=== PATIENT | male | born 1940 | race Caucasian/White ===

== ENCOUNTER → 2020-08-08 | Outpatient (CLI) | payer OTHER | END | disposition home or self-care (01) | LOC: RAH 09:47 | PROVIDERS: ATTEND Internal Medicine | DX: M17.12 Unilateral primary osteoarthritis, left knee (principal); M16.12 Unilateral primary osteoarthritis, left hip; I70.202 Unspecified atherosclerosis of native arteries of extremities, left leg | CPT/HCPCS: 73502; 73562 ==

== ENCOUNTER → 2020-08-26 | Outpatient (CLI) | payer OTHER | END | disposition home or self-care (01) | LOC: RAH 11:24 | PROVIDERS: ATTEND Internal Medicine | DX: M51.17 Intervertebral disc disorders with radiculopathy, lumbosacral region (principal); M48.061 Spinal stenosis, lumbar region without neurogenic claudication | CPT/HCPCS: 72148 ==

== ENCOUNTER 2022-03-23 09:00 | Observation (INO) | payer MEDICARE ==
[~2022-03-23] VITALS: Ht 185.4 cm; Wt 98.1 kg
[2022-03-24 10:24] LABS: BASOPHILS % (AUTO) 0.7 % (0.0-5.0); EOSINOPHILS % (AUTO) 5.1 % (0.0-8.0); MEAN CORPUSCULAR HEMOGLOBIN 31.2 pg (27.0-33.0); MEAN CORPUSCULAR HGB CONC 31.8 g/dL (32.0-36.0); MEAN CORPUSCULAR VOLUME 98.3 fL (79-99); MONOCYTES % (AUTO) 9.5 % (3.0-13.0); NEUTROPHILS % (AUTO) 65.3 % (40.0-77.0); PLATELET COUNT (AUTO) 152 K/uL (130-400); RED BLOOD CELL COUNT(AUTO) 4.58 MIL/uL (4.50-6.20); RED CELL DISTRIBUTION WIDTH 12.8 % (11.0-15.5); WHITE BLOOD COUNT (AUTO) 5.5 K/uL (4.8-10.8)
[2022-03-24 10:41] LABS: CREATININE 0.9 mg/dL (0.5-1.5); POTASSIUM 4.3 mmol/L (3.5-5.1)
[2022-03-25 08:52] VITALS: BP 131/68
[2022-03-25] MEDS ORDERED: ASCO500C18 PO (09:34)
[2022-03-25] MEDS ORDERED: EZET10TA48 PO (09:34)
[2022-03-25] MEDS ORDERED: VITA1CAP85 PO (09:34)
[2022-03-25] MEDS ORDERED: CALCIUM PO (09:34)
[2022-03-25] MEDS ORDERED: METO25TA6 PO (09:34)
[2022-03-25] MEDS ORDERED: BETA1TAB18 PO (09:34)
[2022-03-25] MEDS ORDERED: DUTA1CPM4 PO (09:34)
[2022-03-25] MEDS ORDERED: GLUC-172 PO (09:34)
[2022-03-25] MEDS ORDERED: VITAMIN D PO (09:45)
[2022-03-26] VITALS (25 sets, daily range): BP systolic 109–166; BP diastolic 50–99
[2022-03-26] MEDS ORDERED: LACTATED RINGERS 1000ML 1,000 ML IV ONE (06:44)
[2022-03-26] MEDS ORDERED: DEXAMETHASONE SOD PHOSPHATE 10MG/ML 1ML VIAL ONE ×2 (06:53→06:58)
[2022-03-26] MEDS ORDERED: SUCCINYLCHOLINE CHLORIDE 20 MG/ML 10 ML VIAL ONE (06:53)
[2022-03-26] MEDS ORDERED: LIDOCAINE PF 100MG/5ML (2%) SYRINGE 5ML ONE (06:53)
[2022-03-26] MEDS ORDERED: ONDANSETRON 4MG INJ ONE ×2 (06:54→08:57)
[2022-03-26] MEDS ORDERED: MIDAZOLAM HCL 1 MG/ML 2ML VIAL ONE (06:54)
[2022-03-26] MEDS ORDERED: PROPOFOL 10 MG/ML 20ML VIAL IV ONE (06:54)
[2022-03-26] MEDS ORDERED: NEOSTIGMINE 5MG/5ML SYR IV ONE (06:54)
[2022-03-26] MEDS ORDERED: ROCURONIUM 10MG/1ML SYR 10 MG/ML ML ONE (06:55)
[2022-03-26] MEDS ORDERED: FENTANYL CITRATE PF 50 MCG/1 ML 2ML VIAL ONE ×2 (06:55→09:59)
[2022-03-26] MEDS ORDERED: GLYCOPYRROLATE 1 MG/5 ML SYRINGE ONE (06:57)
[2022-03-26] MEDS ORDERED: CEFAZOLIN SODIUM 1 GM VIAL ONE (07:00)
[2022-03-26] MEDS ORDERED: BUPIVACAINE/EPI/PF 0.25% 30ML VIAL IJ ONE (07:00)
[2022-03-26] MEDS ORDERED: MORPHINE PF 100MG/10ML AMP IV ONE (07:01)
[2022-03-26] MEDS ORDERED: THROMBIN-JMI 20000 UNIT KIT TP ONE (07:01)
[2022-03-26] MEDS ORDERED: PHENYLEPHRINE HCL 10 MG/ML 1ML VIAL IV ONE ×2 (07:04→08:57)
[2022-03-26] MEDS: CEFAZOLIN SODIUM 1 GM VIAL ONE ×2 (07:05→08:00)
[2022-03-26] MEDS ORDERED: ARTIFICIAL TEARS 3.5 GM OINTMENT ONE (07:42)
[2022-03-26] MEDS ORDERED: 0.9%NACL 10ML VIAL IVP PRN (11:00)
[2022-03-26] MEDS ORDERED: PROMETHAZINE HCL 25 MG/ML 1ML AMPULE IM PRN (11:00)
[2022-03-26] MEDS: CEFAZOLIN SODIUM 1 GM VIAL IVP SCH ×2 (11:00→18:50)
[2022-03-26] MEDS ORDERED: HYDROCODONE/ACETAMINOPHEN 5/325 MG TAB PO PRN (11:00)
[2022-03-26] MEDS ORDERED: MORPHINE 2 MG SYG IVP PRN (11:00)
[2022-03-26] MEDS: DEXAMETHASONE SOD PHOSPHATE 4 MG/ML 1ML VIAL IVP SCH ×3 (11:00→22:17)
[2022-03-26] MEDS ORDERED: LACTATED RINGERS 1000ML 1,000 ML IV SCH (11:00)
[2022-03-26] MEDS ORDERED: GLYCOPYRROLATE 0.2 MG/ML 5 ML VIAL ONE (11:04)
[2022-03-26] MEDS: ASCORBIC ACID 500 MG TAB PO SCH (11:23)
[2022-03-26] MEDS ORDERED: GLUCOSAMINE-CHONDROITIN PO SCH (11:27)
[2022-03-26] MEDS: MULTIVITAMIN WITH MINERALS TABLET PO SCH (11:28)
[2022-03-26] MEDS ORDERED: FINASTERIDE 5 MG TABLET PO SCH (21:00)
[2022-03-26] MEDS: METOPROLOL TARTRATE 25 MG TAB PO SCH (22:17)
[2022-03-27 00:22] VITALS: BP 116/61
[2022-03-27 04:25] VITALS: BP 120/67
[2022-03-27] MEDS: DEXAMETHASONE SOD PHOSPHATE 4 MG/ML 1ML VIAL IVP SCH ×2 (05:57→11:28)
[2022-03-27 08:00] VITALS: BP 107/65
[2022-03-27] MEDS ORDERED: TAMSULOSIN HCL PO SCH (09:00)
[2022-03-27] MEDS ORDERED: DUTASTERIDE PO SCH (09:00)
[2022-03-27] MEDS ORDERED: EZETIMIBE 10 MG TAB PO SCH (09:00)
[2022-03-27] MEDS ORDERED: [UNRECOGNIZED DRUG - OTHER] PO SCH (09:00)
[2022-03-27] MEDS ORDERED: CALCIUM CARB 500MG PO SCH (09:00)
[2022-03-27] MEDS ORDERED: TAMSULOSIN HCL 0.4 MG CAP.ER.24H PO SCH (09:00)
[2022-03-27] MEDS ORDERED: FINASTERIDE 5 MG TABLET PO SCH (09:00)
[2022-03-27] MEDS ORDERED: VITAMIN B COMPLEX 1 CAPSULE PO SCH (09:00)
[2022-03-27] MEDS: ASCORBIC ACID 500 MG TAB PO SCH (09:39)
[2022-03-27] MEDS: MULTIVITAMIN WITH MINERALS TABLET PO SCH (09:40)
[2022-03-27] MEDS: METOPROLOL TARTRATE 25 MG TAB PO SCH (09:42)
[2022-03-27 11:55] VITALS: BP 134/73
[2022-03-28] MEDS ORDERED: PHEN-847 PO (01:07)
== END 2022-03-27 12:15 | disposition home or self-care (01) ==
LOC: EDSTATUS 09:00 → DAHIP 03-26 05:58 → 4AH 03-26 12:52
PROVIDERS: ADMIT Neurological Surgery; ATTEND Neurological Surgery
DX: M48.061 Spinal stenosis, lumbar region without neurogenic claudication (principal); Z20.822 Contact with and (suspected) exposure to COVID-19; M47.819 Spondylosis without myelopathy or radiculopathy, site unspecified; N40.0 Benign prostatic hyperplasia without lower urinary tract symptoms; I10 Essential (primary) hypertension; Z79.899 Other long term (current) drug therapy
CPT/HCPCS: 36415; 63047; 63048 ×3; 71045; 72020; 80048; 85025; 87635; 96374; 96375; 96376 ×2; A4215; A4221; A4222; A4223; A4663; A6260; G0378 ×24; G0379; J0330; J0690 ×3; J1100 ×6; J2001; J2250; J2274; J2370 ×2; J2405 ×2; J2704; J2710; J3010 ×2; J3490 ×3; J7120

== ENCOUNTER 2022-03-27 17:25 | Emergency (ER) | payer MEDICARE ==
[~2022-03-27] VITALS: Ht 185.4 cm; Wt 97.1 kg
[~2022-03-27 17:25] MED LIST: ASCO500C18 PO; BETA1TAB18 PO; CALCIUM PO; DUTA1CPM4 PO; EZET10TA48 PO; GLUC-172 PO; METO25TA6 PO; VITA1CAP85 PO; VITAMIN D PO
[2022-03-27] MEDS ORDERED: LIDOCAINE HCL 2% VISCOUS 15 ML UDCUP PO ONE (18:00)
[2022-03-27 18:15] LABS: APPEARANCE,URINE Clear (CLEAR); BILIRUBIN,URINE Negative (NEGATIVE); COLOR,URINE Yellow (YELLOW); GLUCOSE, URINE (UA) Negative (NEGATIVE); KETONES,URINE Negative (NEGATIVE); LEUKOCYTE ESTERASE ,URINE Negative (NEGATIVE); NITRATE,URINE Negative (NEGATIVE); OCCULT BLOOD,URINE Negative (NEGATIVE); PROTEIN,URINE Negative (NEGATIVE); UROBILINOGEN,URINE 0.2 mg/dL (0.2-1.0)
[2022-03-27 19:17] VITALS: BP 151/70
[2022-03-28] MEDS ORDERED: PHEN-847 PO (01:07)
== END 2022-03-27 20:07 | disposition home or self-care (01) ==
LOC: EDH 17:25
DX: R33.9 Retention of urine, unspecified (principal); R10.30 Lower abdominal pain, unspecified; I10 Essential (primary) hypertension; Z98.890 Other specified postprocedural states; Z91.041 Radiographic dye allergy status; Z79.899 Other long term (current) drug therapy
CPT/HCPCS: 51702; 81003

== ENCOUNTER 2022-03-27 23:58 | Emergency (ER) | payer MEDICARE ==
[~2022-03-27] VITALS: Ht 185.4 cm; Wt 97.1 kg
[2022-03-27 23:59] VITALS: BP 159/71
[2022-03-28] MEDS ORDERED: PHENAZOPYRIDINE HCL 200 MG TABLET ONE (00:37)
[2022-03-28] MEDS ORDERED: PHENAZOPYRIDINE HCL 200 MG TABLET PO ONE (01:00)
[2022-03-28] MEDS ORDERED: PHEN-847 PO (01:07)
== END 2022-03-28 01:16 | disposition home or self-care (01) ==
LOC: EDH 23:58
DX: T83.091A Other mechanical complication of indwelling urethral catheter, initial encounter (principal); I10 Essential (primary) hypertension; Z88.8 Allergy status to other drugs, medicaments and biological substances; Z79.899 Other long term (current) drug therapy; Z98.890 Other specified postprocedural states
CPT/HCPCS: 51702; 81003

== ENCOUNTER 2022-03-29 17:34 | Emergency (ER) | payer MEDICARE ==
[~2022-03-29] VITALS: Ht 185.4 cm; Wt 97.1 kg
[~2022-03-29 17:34] MED LIST changes: +PHEN-847 PO
[2022-03-29 17:36] VITALS: BP 140/94
== END 2022-03-29 21:05 | disposition home or self-care (01) ==
LOC: EDH 17:34
DX: Z48.01 Encounter for change or removal of surgical wound dressing (principal); I10 Essential (primary) hypertension; Z88.8 Allergy status to other drugs, medicaments and biological substances; Z79.899 Other long term (current) drug therapy; Z98.890 Other specified postprocedural states

== ENCOUNTER 2023-01-06 10:00 | Emergency (ER) | payer MEDICARE ==
[~2023-01-06] VITALS: Ht 185.4 cm; Wt 95.7 kg
[~2023-01-06 10:00] MED LIST changes: +ACET-2079 PO; +IBUP-2070 PO
[2023-01-06 12:43] VITALS: BP 131/74
== END 2023-01-06 12:44 | disposition home or self-care (01) ==
LOC: EDH 10:00
DX: M54.50 Low back pain, unspecified (principal); E78.00 Pure hypercholesterolemia, unspecified; I10 Essential (primary) hypertension; Z79.1 Long term (current) use of non-steroidal anti-inflammatories (NSAID); Z88.8 Allergy status to other drugs, medicaments and biological substances
CPT/HCPCS: 74176

== ENCOUNTER → 2023-02-16 | Outpatient (CLI) | payer MEDICARE | END | disposition home or self-care (01) | LOC: RAH 16:39 | PROVIDERS: ATTEND Internal Medicine | DX: M51.36 Other intervertebral disc degeneration, lumbar region (principal); M48.07 Spinal stenosis, lumbosacral region; M47.816 Spondylosis without myelopathy or radiculopathy, lumbar region; M54.50 Low back pain, unspecified | CPT/HCPCS: 72100 ==

== ENCOUNTER → 2023-02-24 | Outpatient (CLI) | payer MEDICARE | END | disposition home or self-care (01) | LOC: RAH 14:02 | PROVIDERS: ATTEND Family Medicine | DX: S91.105A Unspecified open wound of left lesser toe(s) without damage to nail, initial encounter (principal); R60.0 Localized edema; M19.072 Primary osteoarthritis, left ankle and foot; M77.32 Calcaneal spur, left foot; X58.XXXA Exposure to other specified factors, initial encounter; Y93.89 Activity, other specified; Y92.89 Other specified places as the place of occurrence of the external cause; Y99.8 Other external cause status | CPT/HCPCS: 73630 ==

== ENCOUNTER → 2023-03-15 | Outpatient (CLI) | payer MEDICARE | END | disposition home or self-care (01) | LOC: RAH 14:56 | PROVIDERS: ATTEND Internal Medicine | DX: S32.000A Wedge compression fracture of unspecified lumbar vertebra, initial encounter for closed fracture (principal); M43.16 Spondylolisthesis, lumbar region; M48.07 Spinal stenosis, lumbosacral region; X58.XXXA Exposure to other specified factors, initial encounter; Y93.89 Activity, other specified; Y92.89 Other specified places as the place of occurrence of the external cause; Y99.8 Other external cause status | CPT/HCPCS: 72114 ==

== ENCOUNTER → 2023-03-26 | Outpatient (CLI) | payer MEDICARE | END | disposition home or self-care (01) | LOC: RAH 13:14 | PROVIDERS: ATTEND Family Medicine | DX: S91.105D Unspecified open wound of left lesser toe(s) without damage to nail, subsequent encounter (principal); M19.072 Primary osteoarthritis, left ankle and foot; R60.0 Localized edema; X58.XXXD Exposure to other specified factors, subsequent encounter | CPT/HCPCS: 73718 ==

== ENCOUNTER → 2023-04-27 | Outpatient (CLI) | payer MEDICARE | END | disposition home or self-care (01) | LOC: RAH 11:32 | PROVIDERS: ATTEND Podiatrist | DX: M86.172 Other acute osteomyelitis, left ankle and foot (principal) | CPT/HCPCS: 73630 ==

== ENCOUNTER → 2023-11-10 | Outpatient (CLI) | payer MEDICARE | END | disposition home or self-care (01) | LOC: RAH 08:42 | PROVIDERS: ATTEND Internal Medicine | DX: K80.20 Calculus of gallbladder without cholecystitis without obstruction (principal) | CPT/HCPCS: 76700; 93975 ==

== ENCOUNTER → 2023-11-26 | Outpatient (CLI) | payer MEDICARE | END | disposition home or self-care (01) | LOC: RAH 13:38 | PROVIDERS: ATTEND Internal Medicine | DX: I35.1 Nonrheumatic aortic (valve) insufficiency (principal); R55 Syncope and collapse | CPT/HCPCS: 93306 ==

== ENCOUNTER → 2023-12-06 | Outpatient (CLI) | payer MEDICARE, OTHER | END | disposition home or self-care (01) | LOC: RAH 13:13 | PROVIDERS: ATTEND Internal Medicine | DX: I65.23 Occlusion and stenosis of bilateral carotid arteries (principal); R55 Syncope and collapse; R42 Dizziness and giddiness | CPT/HCPCS: 93880 ==

== ENCOUNTER → 2023-12-24 | Outpatient (CLI) | payer MEDICARE | END | disposition home or self-care (01) | LOC: RAH 14:05 | PROVIDERS: ATTEND Internal Medicine | DX: M19.021 Primary osteoarthritis, right elbow (principal); M25.521 Pain in right elbow | CPT/HCPCS: 73080 ==

== ENCOUNTER → 2024-09-15 | Outpatient (CLI) | payer MEDICARE | END | disposition home or self-care (01) | LOC: RAH 13:17 | PROVIDERS: ATTEND Internal Medicine | DX: G31.9 Degenerative disease of nervous system, unspecified (principal); R41.3 Other amnesia; G93.89 Other specified disorders of brain | CPT/HCPCS: 70450 ==

== ENCOUNTER 2024-10-08 15:29 | Emergency (ER) | payer MEDICARE ==
[~2024-10-08] VITALS: Ht 185.4 cm; Wt 85.3 kg
--- NOTE | 2024-10-08 15:48 | ERN ---
ED Note History of Present Illness Stated Complaint: BACK PAIN Chief Complaint: Back Pain-No Injury Time Seen by MD: 15:41 Dictation: PATIENT IS AN 84-YEAR-OLD MALE COMING IN WITH A CD FROM AN MRI AND REPORT SHOW HE HAS GOT SEVERE DEGENERATIVE CHANGES TO HIS LUMBOSACRAL BACK WITH CANAL STENOSIS AT L5-S1 S2. NO CHANGE IN BOWEL OR BLADDER FUNCTION, NO FEVER NO CHILLS NO NAUSEA VOMITING. HE STATES HE IS SEEING DR. ALMONTE AT [facility] WHO TOLD HIM THAT HE WAS PROBABLY INOPERABLE AT THIS TIME DUE TO PRIOR SURGERY TO HIS LUMBOSACRAL BACK, ALSO HIS AGE. HE IS SEEING DR. CARTER WHO WAS NOT PRESCRIBED ANYTHING FOR PAIN. HE HAS BEEN REFERRED IN THE NEAR FUTURE TO A TEACHER TUTOR FOR CHRONIC LOW BACK PAIN. HE IS HERE TODAY FOR RELIEF. Allergies: Coded Allergies: Iodinated Contrast Media (Verified Allergy, Unknown, 03/26/22) Uncoded Allergies: IV IODINE (Allergy, Unknown, 03/25/22) Home Meds Active Scripts Methylprednisolone (Medrol) 4 Mg Tab.ds.pk, 1 TAB PO AD for 6 Days, #21 TAB 0 Refills 6 on day 1 then reduce by one tablet daily until gone Prov:ADDIE LEBRON NP 10/08/24 Cyclobenzaprine HCl (Cyclobenzaprine HCl) 10 Mg Tablet, 1 TAB PO HS for muscle spasms for 30 Days, #30 TAB 0 Refills Prov:ADDIE LEBRON NP 10/08/24 Acetaminophen with Codeine (Acetaminophen-Cod #3 Tablet) 300 Mg-30 Mg Tablet, 1 TAB PO Q6H PRN for MODERATE TO SEVERE, #15 TAB 0 Refills Prov:ADDIE LEBRON NP 10/08/24 Acetaminophen with Codeine (Acetaminophen-Cod #3 Tablet) 1 Each Tablet, 1 TAB PO Q6H PRN for PAIN LEVEL 7 TO 10, #15 TAB Prov:WEST RIBERA MD 05/28/22 Ibuprofen (Ibuprofen) 600 Mg Tablet, 600 MG PO Q6H PRN for PAIN, #30 TAB Prov:WEST RIBERA MD 05/28/22 Phenazopyridine HCl (Pyridium) 200 Mg Tab, 200 MG PO TIDPC PRN for bladder pain, #10 TAB 0 Refills TAKE WITH FOOD TO PREVENT STOMACH UPSET. Prov:PATRICIA RIBERA MD 03/28/22 Reported Medications [Vitamin D] No Conflict Check, 1 TAB PO DAILY 03/25/22 Glucosamine/D3/Boswellia Beena (Osteo Bi-Flex Caplet) 1 Each Tablet, 1 EACH PO DAILY, TAB 03/25/22 [Calcium] No Conflict Check, 1 TAB PO DAILY 03/25/22 Ascorbic Acid (Vitamin C) 500 Mg Capsule, 500 MG PO DAILY, CAP 03/25/22 Vitamin B Complex (Vitamin B Complex) 1 Each Capsule, 1 EACH PO DAILY, CAP 03/25/22 Vit A,C & E/Lutein/Minerals (Ocuvite Tablet) 1 Each Tablet, 1 EACH PO DAILY, TAB 03/25/22 Ezetimibe (Ezetimibe) 10 Mg Tablet, 10 MG PO DAILY, TAB 03/25/22 Metoprolol Tartrate (Metoprolol Tartrate) 25 Mg Tablet, 25 MG PO BID, TAB 03/25/22 Dutasteride/Tamsulosin HCl (Dutasteride-Tamsulosin 0.5-0.4) 1 Each Cpmp.24hr, 1 EACH PO DAILY 03/25/22 Past Medical History Past Medical History: High Cholesterol, Hypertension, Prostatitis, Other (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) Additional Past Medical Hx: BPH Surgical History: Other Surgical History Other: LUMBAR SURGERY Social History: Negative, Lives with family, Other RN Note Reviewed/Agreed w/PFSH: Yes Review of System Dictation CONSTITUTIONAL: NEGATIVE EXCEPT FOR HPI HEAD/FACE: NEGATIVE EXCEPT FOR HPI EENT: NEGATIVE EXCEPT FOR HPI RESPIRATORY: NEGATIVE EXCEPT FOR HPI GASTROINTESTINAL/ABDOMINAL: NEGATIVE EXCEPT FOR HPI GENITOURINARY: NEGATIVE EXCEPT FOR HPI MUSCULOSKELETAL: NEGATIVE EXCEPT FOR HPI SEVERE LOW BACK PAIN WORSE WHEN HE STANDS UP INTEGUMENTARY: NEGATIVE EXCEPT FOR HPI NEUROLOGICAL/PSYCH: NEGATIVE EXCEPT FOR HPI HEMATOLOGIC/LYMPHATIC: NEGATIVE EXCEPT FOR HPI ALL SYSTEMS NEGATIVE, EXCEPT NOTED ABOVE. 13 POINT REVIEW OF SYSTEMS ASSESSED AND ALL NEGATIVE EXCEPT FOR ABOVE. Initial Vital Sign VS Vital Signs Date Time Temp Pulse Resp B/P (MAP) Pulse Ox O2 Delivery O2 Flow Rate FiO2 10/08/24 15:33 98.6 90 18 115/86 97 10/08/24 16:26 Room Air* 0 21 Physical Exam Dictation VITAL SIGNS REVIEWED GENERAL APPEARANCE: ALERT, ORIENTED X 3, N MODERATE ACUTE DISTRESS, WELL DEVELOPED, NOURISHED. PATIENT STATES PAIN GOES FROM A SEVEN TO A 10 OVER A 10 WHEN HE STANDS UP HEAD AND FACE: NON-TRAUMATIC. EYES: PERRL, PINK CONJUNCTIVAS, EYELID NO TRAUMA, ANTERIOR CHAMBER WITH ARCUS SENILIS. EARS: PINNAS INTACT AND NO SIGNS OF TRAUMA OR ERYTHEMA EAR CANALS CLEAR AND NO DISCHARGE TM NO ERYTHEMA NOSE: NO DISCHARGE, NO BLEEDING. OROPHARYNX: MOUTH NORMAL, TONGUE PINK, PHARYNX CLEAR,NO ERYTHEMA, TONSILS NO EXUDATES, NO ABSCESSES NOTED, MUCOUS MEMBRANE MOIST NECK: SUPPLE, NON-TENDER, NO THYROMEGALY, NO MASSES, NO JVD, NO BRUITS BREAST:DEFERRED CHEST:NO TENDERNESS, NO CREPITUS, NO PARADOXICAL MOVEMENT, NO RETRACTIONS LUNGS:CLEAR, WELL-VENTILATED, SYMMETRIC, NO RALES, NO WHEEZING, NO RHONCHI, NO STRIDOR, GOOD BREATH SOUNDS BILATERALLY HEART: REGULAR RATE, REGULAR RHYTHM, NO MURMUR, NO GALLOPS VASCULAR: NO PERIPHERAL EDEMA, ABDOMEN: SOFT, POSITIVE BOWEL SOUNDS, NONDISTENDED, NO GUARDING, NONTENDER, NO REBOUND, NO MASSES NO HEPATOMEGALY, NO SPLENOMEGALY, NO YANES'S SIGN, NO HERNIAS. RECTAL: DEFERRED GENITAL: DEFERRED NEUROLOGICAL: NORMAL SPEECH, MOTOR FUNCTION INTACT, SENSORY FUNCTION INTACT MUSCULOSKELETAL: NECK NONTENDER, FULL RANGE OF MOTION, DIFFUSE LUMBOSACRAL PAIN TENDERNESS, FULL RANGE OF MOTION, NEGATIVE STRAIGHT LEG RAISE BILATERALLY 10 EXTREMITIES: NONTENDER, FULL RANGE OF MOTION SKIN: COLOR PINK, DRY, NO TURGOR, NO RASH, NO LACERATIONS, NO ABRASIONS, NO CONTUSIONS. LYMPHATIC: DEFERRED Results (Laboratory/Radiology) Labs Reviewed?: Yes ED Course ED Course Orders Procedure Category Date Status Time Saline Lock Iv CPOE 10/08/24 Transmitted 15:44 Ketorolac PHA 10/08/24 Complete Tromethamine 30mg/Ml 16:00 Methylprednisolone PHA 10/08/24 Complete Succ 125mg (Solu-Medr 16:00 Cyclobenzaprine Hcl PHA 10/08/24 Complete (Cyclobenzaprine Hcl 16:00 Morphine 2mg Syg PHA 10/08/24 Complete (Morphine 2mg Syg) 16:00 Ondansetron 4mg Inj PHA 10/08/24 Complete (Zofran 4mg Inj) 16:00 Current Medications Medications (Trade) Dose Ordered Sig/Imelda Route PRN Reason Start Time Stop Time Status Last Admin Dose Admin Cyclobenzaprine HCl (Cyclobenzaprine HCl) 10 mg ONCE ONCE PO 10/08/24 16:00 10/08/24 16:01 DC 10/08/24 17:12 Ketorolac Tromethamine (toRADol) 30 mg ONCE ONCE IVP 10/08/24 16:00 10/08/24 16:01 DC 10/08/24 17:13 Methylprednisolone Sodium Succinate (Solu-medROL 125MG) 125 mg ONCE ONCE IVP 10/08/24 16:00 10/08/24 16:01 DC 10/08/24 17:12 Morphine Sulfate (morPHINE 2MG SYG) 2 mg ONCE ONCE IVP 10/08/24 16:00 10/08/24 16:01 DC 10/08/24 17:13 Ondansetron HCl (zoFRAN 4MG INJ) 4 mg ONCE ONCE IVP 10/08/24 16:00 10/08/24 16:01 DC 10/08/24 17:12 Vital Signs Date Time Temp Pulse Resp B/P (MAP) Pulse Ox O2 Delivery O2 Flow Rate FiO2 10/08/24 18:10 78 16 157/77 97 Room Air* 0 21 10/08/24 16:26 98.6 74 16 133/90 95 Room Air* 0 21 10/08/24 15:33 98.6 90 18 115/86 97 SEVENTEEN 40 PATIENT NOW ABLE TO STAND UP AND PAIN IS REDUCED TO 5/10. HE STATES HE FEELS MARKEDLY BETTER AFTER TREATMENT IS AWARE HE WILL BE DISCHARGED HOME WITH TYLENOL WITH CODEINE, FLEXERIL/MEDROL DOSEPAK. HE STATES HE HAS A HISTORY OF CONSTIPATION WAS TOLD TO TAKE METAMUCIL1 TSP WITH8 OZ OF WATER EVERY NIGHT AT BEDTIME TO AVOID COMPLICATIONS DUE TO OPIATES. FOLLOW UP WITH HIS PRIMARY CARE DOCTOR. Medical Decision Making MDM MEDICAL DISCHARGE MAKING BASED ON EMPIRIC TREATMENT OF CHRONIC LOW BACK PAIN DUE TO STENOSIS AND DJD. DISCHARGED HOME WITH TYLENOL NO. 3, CYCLOBENZAPRINE, MEDROL DOSEPAK ADVISED TO TAKE METAMUCIL AT NIGHT FOR CONSTIPATION SEE HIS PRIMARY CARE DOCTOR FOR FOLLOW UP DX & DISP Disposition: Discharge Departure Impression: Primary Impression: Acute exacerbation of chronic low back pain Additional Impression: Lumbar spondylosis Condition: Stable Scripts Methylprednisolone (Medrol) 4 Mg Tab.ds.pk 1 TAB PO AD for 6 Days, #21 TAB 0 Refills 6 on day 1 then reduce by one tablet daily until gone Prov: ADDIE LEBRON NP 10/08/24 Cyclobenzaprine HCl (Cyclobenzaprine HCl) 10 Mg Tablet 1 TAB PO HS for muscle spasms for 30 Days, #30 TAB 0 Refills Prov: ADDIE LEBRON NP 10/08/24 Acetaminophen with Codeine (Acetaminophen-Cod #3 Tablet) 300 Mg-30 Mg Tablet 1 TAB PO Q6H PRN for MODERATE TO SEVERE, #15 TAB 0 Refills Prov: ADDIE LEBRON NP 10/08/24 Additional Instructions: Follow-up with primary care provider in 1 to 2 days. Take medications as directed here in the emergency room. Okay to continue home medications unless otherwise discussed during your visit in the emergency room today. Return to your nearest emergency room if symptoms worsen or if there is no improvement. Call 911 if you need immediate assistance. Take Tylenol or Motrin [id number] as needed and if no contraindications are present. Increase oral hydration. A wound culture or urine culture was ordered here in the emergency room department please follow-up with primary care provider and advise them to get repeat ports from our facility. If you had any Chava wrap/splints that were applied here, please do not remove them until you see your primary care or specialty. Take Medrol Dosepak as directed until gone. Take Flexeril every night at bedtime for the next 10 days. Warm compresses to pain three to 4 times a day. Follow up with your primary care doctor for follow up Suggest Metamucil1 tsp at bedtime with8 oz of water every night while taking Tylenol with codeine. Referrals: SHRUTI CARTER MD (PCP) Time of Disposition: 17:42 I have reviewed the case, and I agree with, Diagnosis and Plan ATTESTATION BY PHYSICIAN I PERFORMED THE SUBSTANTIVE PORTION OF THE VISIT. I HAVE REVIEWED AND PERSONALLY MADE AND APPROVED THE MANAGEMENT PLAN THAT IS DOCUMENTED IN THE NOTE BY MYSELF FOR THE A PP. I ACKNOWLEDGED FOR RESPONSIBILITY FOR THE PATIENT'S MANAGEMENT PLAN. ADDIE LEBRON NP Oct 08, 2024 15:48 JOHNNIE VALVERDE MD Oct 08, 2024 18:50
--- NOTE | 2024-10-08 15:52 | NUR ---
PT JUST NOW PLACED IN MY ED BED 18
[2024-10-08 16:26] VITALS: TEMP 98.6
[2024-10-08] MEDS: CYCLOBENZAPRINE HCL 10 MG TABLET PO ONE (17:12)
[2024-10-08] MEDS: Solu-medROL 125MG VIAL IVP ONE (17:12)
[2024-10-08] MEDS: ondanSETRON 4MG INJ IVP ONE (17:12)
[2024-10-08] MEDS: ketOROlac 30MG VIAL (30MG/ML) IVP ONE (17:13)
[2024-10-08] MEDS: morPHINE 2 MG SYG IVP ONE (17:13)
[2024-10-08] MEDS ORDERED: METH4TAB3 PO (17:44)
[2024-10-08] MEDS ORDERED: ACET-2079 PO (17:44)
[2024-10-08] MEDS ORDERED: CYCL-309 PO (17:44)
[2024-10-08 18:10] VITALS: BP 157/77; PULSE 78; RESP 16; O2SAT 97
== END 2024-10-08 18:21 | disposition home or self-care (01) ==
LOC: EDH 15:29
DX: G89.29 Other chronic pain (principal); M54.50 Low back pain, unspecified; M47.816 Spondylosis without myelopathy or radiculopathy, lumbar region; E78.00 Pure hypercholesterolemia, unspecified; I10 Essential (primary) hypertension; Z79.899 Other long term (current) drug therapy; Z88.8 Allergy status to other drugs, medicaments and biological substances; Z91.041 Radiographic dye allergy status; Z98.890 Other specified postprocedural states
CPT/HCPCS: 99284; 96374; 96375; J2270; J2919; J2405; J1885

== ENCOUNTER 2024-10-15 17:55 | Emergency (ER) | payer MEDICARE ==
[~2024-10-15] VITALS: Ht 185.4 cm; Wt 83.9 kg
[~2024-10-15 17:55] MED LIST changes: +CYCL-309 PO; +METH4TAB3 PO
--- NOTE | 2024-10-15 18:24 | ERN ---
ED Note History of Present Illness Stated Complaint: RT GROIN PAIN Chief Complaint: Groin Pain Time Seen by MD: 18:11 Dictation: PATIENT IS A 84-YEAR-OLD MALE COMING IN TODAY WITH COMPLAINTS OF BLOATING AND NO BM FOR THE LAST SIX DAYS. HE ALSO STATES HE IS HAVING SOME BLOATING TO THE RIGHT LOWER QUADRANT AREA NO NAUSEA NO VOMITING NO FEVER NO CHILLS NO CHANGE IN URINATION. HE STATES HE HAS BEEN EATING WITH NO DIFFICULTY. HE DOES STATE THAT HE HAS CHRONIC LOW BACK PAIN AND IS PENDING A LUMBAR SURGERY BY DR. ALMONTE AT [facility] NEXT MONTH. HE HAS BEEN ON CHRONIC CHRONIC USE OF TYLENOL WITH CODEINE FOR HIS LOW BACK PAIN FOR SEVERAL WEEKS. Allergies: Coded Allergies: Iodinated Contrast Media (Verified Allergy, Unknown, 03/26/22) Uncoded Allergies: IV IODINE (Allergy, Unknown, 03/25/22) Home Meds Active Scripts Methylprednisolone (Medrol) 4 Mg Tab.ds.pk, 1 TAB PO AD for 6 Days, #21 TAB 0 Refills 6 on day 1 then reduce by one tablet daily until gone Prov:ADDIE LEBRON NP 10/08/24 Cyclobenzaprine HCl (Cyclobenzaprine HCl) 10 Mg Tablet, 1 TAB PO HS for muscle spasms for 30 Days, #30 TAB 0 Refills Prov:ADDIE LEBRON NP 10/08/24 Acetaminophen with Codeine (Acetaminophen-Cod #3 Tablet) 300 Mg-30 Mg Tablet, 1 TAB PO Q6H PRN for MODERATE TO SEVERE, #15 TAB 0 Refills Prov:ADDIE LEBRON NP 10/08/24 Acetaminophen with Codeine (Acetaminophen-Cod #3 Tablet) 1 Each Tablet, 1 TAB PO Q6H PRN for PAIN LEVEL 7 TO 10, #15 TAB Prov:WEST RIBERA MD 05/28/22 Ibuprofen (Ibuprofen) 600 Mg Tablet, 600 MG PO Q6H PRN for PAIN, #30 TAB Prov:WEST RIBERA MD 05/28/22 Phenazopyridine HCl (Pyridium) 200 Mg Tab, 200 MG PO TIDPC PRN for bladder pain, #10 TAB 0 Refills TAKE WITH FOOD TO PREVENT STOMACH UPSET. Prov:PATRICIA RIBERA MD 03/28/22 Reported Medications [Vitamin D] No Conflict Check, 1 TAB PO DAILY 03/25/22 Glucosamine/D3/Boswellia Beena (Osteo Bi-Flex Caplet) 1 Each Tablet, 1 EACH PO DAILY, TAB 03/25/22 [Calcium] No Conflict Check, 1 TAB PO DAILY 03/25/22 Ascorbic Acid (Vitamin C) 500 Mg Capsule, 500 MG PO DAILY, CAP 03/25/22 Vitamin B Complex (Vitamin B Complex) 1 Each Capsule, 1 EACH PO DAILY, CAP 03/25/22 Vit A,C & E/Lutein/Minerals (Ocuvite Tablet) 1 Each Tablet, 1 EACH PO DAILY, TAB 03/25/22 Ezetimibe (Ezetimibe) 10 Mg Tablet, 10 MG PO DAILY, TAB 03/25/22 Metoprolol Tartrate (Metoprolol Tartrate) 25 Mg Tablet, 25 MG PO BID, TAB 03/25/22 Dutasteride/Tamsulosin HCl (Dutasteride-Tamsulosin 0.5-0.4) 1 Each Cpmp.24hr, 1 EACH PO DAILY 03/25/22 Past Medical History Past Medical History: High Cholesterol, Hypertension Additional Past Medical Hx: CHRONIC BACK PAIN Surgical History: Other Surgical History Other: BACK SX, ABD HERNIA REPAIR Social History: Negative, Lives with family, Other RN Note Reviewed/Agreed w/PFSH: Yes Review of System Dictation CONSTITUTIONAL: NEGATIVE EXCEPT FOR HPI HEAD/FACE: NEGATIVE EXCEPT FOR HPI EENT: NEGATIVE EXCEPT FOR HPI RESPIRATORY: NEGATIVE EXCEPT FOR HPI GASTROINTESTINAL/ABDOMINAL: NEGATIVE EXCEPT FOR HPI RIGHT LOWER QUADRANT BLOATING WITH CONSTIPATION SIX DAYS GENITOURINARY: NEGATIVE EXCEPT FOR HPI MUSCULOSKELETAL: NEGATIVE EXCEPT FOR HPI INTEGUMENTARY: NEGATIVE EXCEPT FOR HPI NEUROLOGICAL/PSYCH: NEGATIVE EXCEPT FOR HPI HEMATOLOGIC/LYMPHATIC: NEGATIVE EXCEPT FOR HPI ALL SYSTEMS NEGATIVE, EXCEPT NOTED ABOVE. 13 POINT REVIEW OF SYSTEMS ASSESSED AND ALL NEGATIVE EXCEPT FOR ABOVE. Initial Vital Sign VS Vital Signs Date Time Temp Pulse Resp B/P (MAP) Pulse Ox O2 Delivery O2 Flow Rate FiO2 10/15/24 17:57 97.0 84 18 152/87 96 Room Air Physical Exam Dictation VITAL SIGNS REVIEWED GENERAL APPEARANCE: ALERT, ORIENTED X 3, MILD ACUTE DISTRESS, WELL DEVELOPED, NOURISHED. HEAD AND FACE: NON-TRAUMATIC. EYES: PERRL, PINK CONJUNCTIVAS, EYELID NO TRAUMA, ANTERIOR CHAMBER WITH ARCUS SENILIS. EARS: PINNAS INTACT AND NO SIGNS OF TRAUMA OR ERYTHEMA EAR CANALS CLEAR AND NO DISCHARGE TM NO ERYTHEMA NOSE: NO DISCHARGE, NO BLEEDING. OROPHARYNX: MOUTH NORMAL, TONGUE PINK, PHARYNX CLEAR,NO ERYTHEMA, TONSILS NO EXUDATES, NO ABSCESSES NOTED, MUCOUS MEMBRANE MOIST NECK: SUPPLE, NON-TENDER, NO THYROMEGALY, NO MASSES, NO JVD, NO BRUITS BREAST:DEFERRED CHEST:NO TENDERNESS, NO CREPITUS, NO PARADOXICAL MOVEMENT, NO RETRACTIONS LUNGS:CLEAR, WELL-VENTILATED, SYMMETRIC, NO RALES, NO WHEEZING, NO RHONCHI, NO STRIDOR, GOOD BREATH SOUNDS BILATERALLY HEART: REGULAR RATE, REGULAR RHYTHM, NO MURMUR, NO GALLOPS VASCULAR: NO PERIPHERAL EDEMA, ABDOMEN: SOFT, NO DISTENTION, DECREASED BOWEL SOUNDS ALL QUADRANTS. NO FOCAL TENDERNESS, NEGATIVE CVAT BILATERALLY. RECTAL: DEFERRED GENITAL: DEFERRED NEUROLOGICAL: NORMAL SPEECH, MOTOR FUNCTION INTACT, SENSORY FUNCTION INTACT MUSCULOSKELETAL: NECK NONTENDER, FULL RANGE OF MOTION, DIFFUSE LUMBOSACRAL TENDERNESS, CHRONIC, FULL RANGE OF MOTION, EXTREMITIES: NONTENDER, FULL RANGE OF MOTION SKIN: COLOR PINK, DRY, NO TURGOR, NO RASH, NO LACERATIONS, NO ABRASIONS, NO CONTUSIONS. LYMPHATIC: DEFERRED Results (Laboratory/Radiology) Laboratory/Radiology Laboratory Tests Test 10/15/24 19:30 10/15/24 20:46 White Blood Count 8.0 K/uL (4.8-10.8) Red Blood Count 4.84 MIL/uL (4.50-6.20) Hemoglobin 15.7 g/dL (14.0-18.0) Hematocrit 48.0 % (42-54) Mean Corpuscular Volume 99.2 fL (79-99) H Mean Corpuscular Hemoglobin 32.4 pg (27.0-33.0) Mean Corpuscular Hemoglobin Concent 32.7 g/dL (32.0-36.0) Red Cell Distribution Width 12.4 % (11.0-15.5) Platelet Count 192 K/uL (130-400) Mean Platelet Volume 9.4 fL (7.5-10.5) Immature Granulocyte % (Auto) 0.4 % (0-1) Neutrophils (%) (Auto) 78.4 % (40.0-77.0) H Lymphocytes (%) (Auto) 13.5 % (21.0-51.0) L Monocytes (%) (Auto) 6.5 % (3.0-13.0) Eosinophils (%) (Auto) 0.8 % (0.0-8.0) Basophils (%) (Auto) 0.4 % (0.0-5.0) Neutrophils # (Auto) 6.3 K/uL (1.8-7.7) Lymphocytes # (Auto) 1.1 K/uL (1.0-4.8) Monocytes # (Auto) 0.5 K/uL (0.1-1.0) Eosinophils # (Auto) 0.06 K/uL (0.00-0.70) Basophils # (Auto) 0.03 K/uL (0.00-0.20) Absolute Immature Granulocyte (auto 0.03 K/uL (0-1) Nucleated Red Blood Cells 0.0 % (0.0-0.19) Sodium Level 139 mmol/L (136-145) Potassium Level 4.1 mmol/L (3.5-5.1) Chloride Level 105 mmol/L (101-111) Carbon Dioxide Level 30 mmol/L (21-32) Blood Urea Nitrogen 24 mg/dL (7-18) H Creatinine 0.8 mg/dL (0.5-1.3) Glomerular Filtration Rate Calc 88 mL/min (>90) Random Glucose 111 mg/dL (70-105) H Total Calcium 9.4 mg/dL (8.5-10.1) Urine Color YELLOW (YELLOW) Urine Appearance CLEAR (CLEAR) Urine pH 5.5 (5.0-8.0) Urine Specific [place] 1.024 (1.001-1.031) Urine Protein NEGATIVE mg/dL (NEGATIVE) Urine Glucose (UA) NEGATIVE mg/dL (NEGATIVE) Urine Ketones NEGATIVE mg/dL (NEGATIVE) Urine Occult Blood NEGATIVE (NEGATIVE) Urine Nitrate NEGATIVE (NEGATIVE) Urine Bilirubin NEGATIVE mg/dL (NEGATIVE) Urine Urobilinogen 0.2 mg/dL (0.2-1.0) Urine Leukocyte Esterase NEGATIVE Erick/uL 1955, KUB DEMONSTRATES NONSPECIFIC GAS PATTERN AND RETAINED STOOL. Labs Reviewed?: Yes ED Course ED Course Orders Procedure Category Date Status Time Abd 1vw RAD 10/15/24 Resulted 18:21 Lactulose 20 Gm/30 Ml PHA 10/15/24 Complete Udcup (Constulose 18:30 Bisacodyl (Dulcolax) PHA 10/15/24 Complete 18:30 Cbc With Differential LAB 10/15/24 Complete 18:21 Urinalysis Profile LAB 10/15/24 Complete 18:21 Basic Metabolic Panel LAB 10/15/24 Complete 18:21 Current Medications Medications (Trade) Dose Ordered Sig/Imelda Route PRN Reason Start Time Stop Time Status Last Admin Dose Admin Bisacodyl (DulcoLAX) 10 mg ONCE ONCE RC 10/15/24 18:30 10/15/24 18:31 DC 10/15/24 20:34 Lactulose (Constulose 20gm/ 30ml Udcup) 20 gm ONCE ONCE PO 10/15/24 18:30 10/15/24 18:31 DC 10/15/24 20:34 Vital Signs Date Time Temp Pulse Resp B/P (MAP) Pulse Ox O2 Delivery O2 Flow Rate FiO2 10/15/24 17:57 97.0 84 18 152/87 96 Room Air 2125/patient had small BM however still feels like he is going to have more bowel movements after the medication. He is aware that this is opiate induced constipation we will be given a GoLYTELY prep to follow up Medical Decision Making MDM MDM: Differential diagnosis: Constipation/electrolyte imbalance/dehydration/UTI Rationale: Tests considered and ordered secondary to shared decision making include: Radiology/labs Previous outside records reviewed: Old ER visits. Reviewed Risk of complication and/or morbidity or mortality of patient management: None Medications-Per medication reconciliation Need for hospitalization: Patient does not meet criteria for hospitalization. No Need for emergency major/minor surgery: No There are no social concerns with this patient. Prescription drug management GoLYTELY Prescriptions will include symptomatic care Patient's prior external medical records from other ER visits were reviewed by me as indicated. Prior testing and results from previous visits were reviewed. Prior tests were taken into account with medical decision making and resource utilization, independent historian/historians were used to obtain complete medical history. I independently interpreted the test that were performed, results were reviewed by me and considered findings on radiology if ordered. Medical management and examination interpretation discussions were had by me with other qualified healthcare professionals as indicated for the patient's care. DX & DISP Disposition: Discharge Departure Impression: Primary Impression: Constipation due to opioid therapy Condition: Stable Scripts Peg 3350/Na Sulf,Bicarb,Cl/KCl (Golytely/Colyte Soln) 236-22.74G Soln 4000 ML PO AD, #1 UNIT Mixed as directed, drink one cup every 10 minutes until stools are clear. Prov: ADDIE LEBRON NP 10/15/24 Additional Instructions: Follow-up with primary care provider in 1 to 2 days. Take medications as directed here in the emergency room. Okay to continue home medications unless otherwise discussed during your visit in the emergency room today. Return to your nearest emergency room if symptoms worsen or if there is no improvement. Call 911 if you need immediate assistance. Take Tylenol or Motrin [id number] as needed and if no contraindications are present. Increase oral hydration. A wound culture or urine culture was ordered here in the emergency room department please follow-up with primary care provider and advise them to get repeat ports from our facility. If you had any Chava wrap/splints that were applied here, please do not remove them until you see your primary care or specialty. Use GoLYTELY as directed for constipation. Once your constipation has been address with GoLYTELY, suggest Metamucil1 tsp in8 oz water/[id number] every night at bedtime follow up with your primary care doctor Referrals: SHRUTI CARTER MD (PCP) Time of Disposition: 21:28 I have reviewed the case, and I agree with, Diagnosis and Plan ADDIE LEBRON NP Oct 15, 2024 18:24
[2024-10-15 19:37] LABS: BASOPHILS # (AUTO) 0.03 K/uL (0.00-0.20); BASOPHILS % (AUTO) 0.4 % (0.0-5.0); EOSINOPHILS # (AUTO) 0.06 K/uL (0.00-0.70); EOSINOPHILS % (AUTO) 0.8 % (0.0-8.0); IMMATURE GRANULOCYTE ABSOLUTE 0.03 K/uL (0-1); LYMPHOCYTES # (AUTO) 1.1 K/uL (1.0-4.8); LYMPHOCYTES % (AUTO) 13.5 % (21.0-51.0); MEAN CORPUSCULAR HEMOGLOBIN 32.4 pg (27.0-33.0); MEAN CORPUSCULAR HGB CONC 32.7 g/dL (32.0-36.0); MEAN CORPUSCULAR VOLUME 99.2 fL (79-99); MONOCYTES # (AUTO) 0.5 K/uL (0.1-1.0); MONOCYTES % (AUTO) 6.5 % (3.0-13.0); NEUTROPHILS # (AUTO) 6.3 K/uL (1.8-7.7); NEUTROPHILS % (AUTO) 78.4 % (40.0-77.0); PLATELET COUNT (AUTO) 192 K/uL (130-400); RED BLOOD CELL COUNT(AUTO) 4.84 MIL/uL (4.50-6.20); RED CELL DISTRIBUTION WIDTH 12.4 % (11.0-15.5)
[2024-10-15 19:46] LABS: CREATININE 0.8 mg/dL (0.5-1.3); POTASSIUM 4.1 mmol/L (3.5-5.1)
--- NOTE | 2024-10-15 20:27 | HMCIMG ---
Exam Type: ABD 1VW Clinical Information: CONSTIPATION FOR SIX DAYS Comparison: None Findings: Abdomen demonstrates no evidence of pathologic calcification or soft tissue mass. There are no radiopacities to suggest calculous disease. There is abundant fecal matter consistent with constipation. There is no evidence of dilatation to suggest obstruction or adynamic ileus. The bony structures are unremarkable. IMPRESSION: Constipation.
[2024-10-15] MEDS: BisaCODYL 10 MG SUPP.RECT RC ONE (20:34)
[2024-10-15] MEDS: LACTULOSE 20 GM/30 ML UDCUP PO ONE (20:34)
[2024-10-15 21:14] LABS: APPEARANCE,URINE CLEAR (CLEAR); BILIRUBIN,URINE NEGATIVE (NEGATIVE); COLOR,URINE YELLOW (YELLOW); GLUCOSE, URINE (UA) NEGATIVE (NEGATIVE); KETONES,URINE NEGATIVE (NEGATIVE); LEUKOCYTE ESTERASE ,URINE NEGATIVE Leu/uL (NEGATIVE); NITRATE,URINE NEGATIVE (NEGATIVE); OCCULT BLOOD,URINE NEGATIVE (NEGATIVE); PH,URINE 5.5 (5.0-8.0); PROTEIN,URINE NEGATIVE (NEGATIVE); UROBILINOGEN,URINE 0.2 mg/dL (0.2-1.0)
[2024-10-15 21:17] LABS: ADD UA MICROSCOPIC NO
[2024-10-15] MEDS ORDERED: GOLY4L PO (21:29)
[2024-10-15 21:46] VITALS: BP 157/68; PULSE 68; RESP 20; TEMP 98.3; O2SAT 97
== END 2024-10-15 22:02 | disposition home or self-care (01) ==
LOC: EDH 17:55
DX: K59.00 Constipation, unspecified (principal); T40.2X5A Adverse effect of other opioids, initial encounter; E78.00 Pure hypercholesterolemia, unspecified; I10 Essential (primary) hypertension; Z88.8 Allergy status to other drugs, medicaments and biological substances; Z91.041 Radiographic dye allergy status; Z98.890 Other specified postprocedural states
CPT/HCPCS: 36415; 74018; 80048; 81003; 85025; 99284

== ENCOUNTER 2024-10-28 10:57 | Emergency (ER) | payer MEDICARE ==
[~2024-10-28] VITALS: Ht 182.9 cm; Wt 81.6 kg
[~2024-10-28 10:57] MED LIST changes: +GOLY4L PO
[2024-10-28 11:38] VITALS: BP 143/68; PULSE 87; RESP 18; TEMP 98.6
--- NOTE | 2024-10-28 11:38 | ERN ---
ED Note History of Present Illness Stated Complaint: CYST Chief Complaint: Abscess Time Seen by MD: 12:13 Dictation: PATIENT IS A 84-YEAR-OLD MALE HERE WITH A KNOWN CYST TO HIS POSTERIOR NECK INFERIORLY HE HAS HAD FOR SEVERAL YEARS. STATES IT HAS ALREADY BEEN REMOVED TWICE BY HIS AMPHIBIAN CREWMEMBER HOWEVER THIS WOULD NOT HAS COME UP AND WAS NOT CAUSING HIM ANY PAIN UNTIL SEVERAL DAYS AGO WHEN HE NOTICED IT WHEN HE LAID BACK. HE IS PENDING SURGERY ON HIS LOW BACK BY DR. ALMONTE AT [facility] IN TWO WEEKS AND WOULD LIKE TO HAVE IT REMOVED TODAY. STATES HE HAS SEEN HIS PRIMARY CARE DOCTOR LAST WEEK WHO TOLD HIM TO JUST COME TO THE EMERGENCY ROOM AND WE WOULD REMOVE IT. Allergies: Coded Allergies: Iodinated Contrast Media (Verified Allergy, Unknown, 03/26/22) Uncoded Allergies: IV IODINE (Allergy, Unknown, 03/25/22) Home Meds Active Scripts Peg 3350/Na Sulf,Bicarb,Cl/KCl (Golytely/Colyte Soln) 236-22.74G Soln, 4000 ML PO AD, #1 UNIT Mixed as directed, drink one cup every 10 minutes until stools are clear. Prov:ADDIE LEBRON NP 10/15/24 Methylprednisolone (Medrol) 4 Mg Tab.ds.pk, 1 TAB PO AD for 6 Days, #21 TAB 0 Refills 6 on day 1 then reduce by one tablet daily until gone Prov:ADDIE LEBRON NP 10/08/24 Cyclobenzaprine HCl (Cyclobenzaprine HCl) 10 Mg Tablet, 1 TAB PO HS for muscle spasms for 30 Days, #30 TAB 0 Refills Prov:ADDIE LEBRON NP 10/08/24 Acetaminophen with Codeine (Acetaminophen-Cod #3 Tablet) 300 Mg-30 Mg Tablet, 1 TAB PO Q6H PRN for MODERATE TO SEVERE, #15 TAB 0 Refills Prov:ADDIE LEBRON NP 10/08/24 Acetaminophen with Codeine (Acetaminophen-Cod #3 Tablet) 1 Each Tablet, 1 TAB PO Q6H PRN for PAIN LEVEL 7 TO 10, #15 TAB Prov:WEST RIBERA MD 05/28/22 Ibuprofen (Ibuprofen) 600 Mg Tablet, 600 MG PO Q6H PRN for PAIN, #30 TAB Prov:WEST RIBERA MD 05/28/22 Phenazopyridine HCl (Pyridium) 200 Mg Tab, 200 MG PO TIDPC PRN for bladder pain, #10 TAB 0 Refills TAKE WITH FOOD TO PREVENT STOMACH UPSET. Prov:PATRICIA RIBERA MD 03/28/22 Reported Medications [Vitamin D] No Conflict Check, 1 TAB PO DAILY 03/25/22 Glucosamine/D3/Boswellia Beena (Osteo Bi-Flex Caplet) 1 Each Tablet, 1 EACH PO DAILY, TAB 03/25/22 [Calcium] No Conflict Check, 1 TAB PO DAILY 03/25/22 Ascorbic Acid (Vitamin C) 500 Mg Capsule, 500 MG PO DAILY, CAP 03/25/22 Vitamin B Complex (Vitamin B Complex) 1 Each Capsule, 1 EACH PO DAILY, CAP 03/25/22 Vit A,C & E/Lutein/Minerals (Ocuvite Tablet) 1 Each Tablet, 1 EACH PO DAILY, TAB 03/25/22 Ezetimibe (Ezetimibe) 10 Mg Tablet, 10 MG PO DAILY, TAB 03/25/22 Metoprolol Tartrate (Metoprolol Tartrate) 25 Mg Tablet, 25 MG PO BID, TAB 03/25/22 Dutasteride/Tamsulosin HCl (Dutasteride-Tamsulosin 0.5-0.4) 1 Each Cpmp.24hr, 1 EACH PO DAILY 03/25/22 Past Medical History Past Medical History: High Cholesterol, Hypertension Additional Past Medical Hx: CHRONIC BACK PAIN Surgical History: Other Surgical History Other: BACK SX, ABD HERNIA REPAIR Social History: Negative, Lives with family, Other RN Note Reviewed/Agreed w/PFSH: Yes Review of System Dictation CONSTITUTIONAL: NEGATIVE EXCEPT FOR HPI HEAD/FACE: NEGATIVE EXCEPT FOR HPI EENT: NEGATIVE EXCEPT FOR HPI RESPIRATORY: NEGATIVE EXCEPT FOR HPI GASTROINTESTINAL/ABDOMINAL: NEGATIVE EXCEPT FOR HPI GENITOURINARY: NEGATIVE EXCEPT FOR HPI MUSCULOSKELETAL: NEGATIVE EXCEPT FOR HPI INTEGUMENTARY: NEGATIVE EXCEPT FOR HPI POST CERVICAL CYST NEUROLOGICAL/PSYCH: NEGATIVE EXCEPT FOR HPI HEMATOLOGIC/LYMPHATIC: NEGATIVE EXCEPT FOR HPI ALL SYSTEMS NEGATIVE, EXCEPT NOTED ABOVE. 13 POINT REVIEW OF SYSTEMS ASSESSED AND ALL NEGATIVE EXCEPT FOR ABOVE. Initial Vital Sign VS Vital Signs Date Time Temp Pulse Resp B/P (MAP) Pulse Ox O2 Delivery O2 Flow Rate FiO2 10/28/24 11:38 98.6 87 18 143/68 96 Physical Exam Dictation VITAL SIGNS REVIEWED GENERAL APPEARANCE: ALERT, ORIENTED X 3, NO ACUTE DISTRESS, WELL DEVELOPED, NOURISHED. HEAD AND FACE: NON-TRAUMATIC. EYES: PERRL, PINK CONJUNCTIVAS, EYELID NO TRAUMA, ANTERIOR CHAMBER WITH ARCUS SENILIS. EARS: PINNAS INTACT AND NO SIGNS OF TRAUMA OR ERYTHEMA EAR CANALS CLEAR AND NO DISCHARGE TM NO ERYTHEMA NOSE: NO DISCHARGE, NO BLEEDING. OROPHARYNX: MOUTH NORMAL, TONGUE PINK, PHARYNX CLEAR,NO ERYTHEMA, TONSILS NO EXUDATES, NO ABSCESSES NOTED, MUCOUS MEMBRANE MOIST NECK: SUPPLE, NON-TENDER, NO THYROMEGALY, NO MASSES, NO JVD, NO BRUITS BREAST:DEFERRED CHEST:NO TENDERNESS, NO CREPITUS, NO PARADOXICAL MOVEMENT, NO RETRACTIONS LUNGS:CLEAR, WELL-VENTILATED, SYMMETRIC, NO RALES, NO WHEEZING, NO RHONCHI, NO STRIDOR, GOOD BREATH SOUNDS BILATERALLY HEART: REGULAR RATE, REGULAR RHYTHM, NO MURMUR, NO GALLOPS VASCULAR: NO PERIPHERAL EDEMA, ABDOMEN: SOFT, POSITIVE BOWEL SOUNDS, NONDISTENDED, NO GUARDING, NONTENDER, NO REBOUND, NO MASSES NO HEPATOMEGALY, NO SPLENOMEGALY, NO YANES'S SIGN, NO HERNIAS. RECTAL: DEFERRED GENITAL: DEFERRED NEUROLOGICAL: NORMAL SPEECH, MOTOR FUNCTION INTACT, SENSORY FUNCTION INTACT MUSCULOSKELETAL: NECK NONTENDER, FULL RANGE OF MOTION, BACK NONTENDER, FULL RANGE OF MOTION, EXTREMITIES: NONTENDER, FULL RANGE OF MOTION SKIN: COLOR PINK, DRY, NO TURGOR, POSTERIOR CERVICAL CYST, IMMOBILE,3 X 4 CM MILD ERYTHEMA LYMPHATIC: DEFERRED Results (Laboratory/Radiology) Labs Reviewed?: Yes ED Course ED Course Orders Procedure Category Date Status Time Cbc With Differential LAB 10/28/24 Logged 11:37 Basic Metabolic Panel LAB 10/28/24 Logged 11:37 Clindamycin 150mg Cap PHA 10/28/24 Complete (Cleocin 150mg Cap 12:00 Current Medications Medications (Trade) Dose Ordered Sig/Imelda Route PRN Reason Start Time Stop Time Status Last Admin Dose Admin Clindamycin HCl (Cleocin 150mg Cap) 600 mg ONCE ONCE PO 10/28/24 12:00 10/28/24 12:01 DC Vital Signs Date Time Temp Pulse Resp B/P (MAP) Pulse Ox O2 Delivery O2 Flow Rate FiO2 10/28/24 11:38 98.6 87 18 143/68 96 1207, PATIENT STATES HE WAS HERE TO HAVE IT SURGICALLY REMOVED THIS MORNING AND WAS TOLD BY HIS DOCTOR IT COULD BE DONE. I ADVISED HIM I DID NOT HAVE A SURGEON WHO WOULD REMOVE THE CYST AT THIS TIME HE SAID HE CALLED [facility] EMERGENCY ROOM AND THEY TOLD HIM TO COME WE WILL BE THEN THE SURGEON WAS WAITING FOR HIM IN THE EMERGENCY ROOM. HE SAID HE WAS GOING TO LEAVE Medical Decision Making MDM MEDICAL DECISION-MAKING BASED ON EXAMINATION BASIC LABS FOR A PROBABLE SEBACEOUS CYST PATIENT WANTED CYST SURGICALLY REMOVED THIS MORNING LEFT BECAUSE NO SURGEON WAS AVAILABLE IN THE EMERGENCY ROOM. DX & DISP Disposition: Discharge Departure Impression: Primary Impression: Sebaceous cyst Condition: Stable Referrals: SHRUTI CARTER MD (PCP) Time of Disposition: 12:16 I have reviewed the case, and I agree with, Diagnosis and Plan ADDIE LEBRON NP Oct 28, 2024 11:38
[2024-10-28] MEDS ORDERED: CLINDAMYCIN 150 MG CAP PO ONE (12:00)
--- NOTE | 2024-10-28 12:14 | NUR ---
PT STATED GOING TO [facility]
== END 2024-10-28 12:19 | disposition left against medical advice (07) ==
LOC: EDH 10:57
DX: L72.3 Sebaceous cyst (principal); E78.00 Pure hypercholesterolemia, unspecified; I10 Essential (primary) hypertension; Z88.8 Allergy status to other drugs, medicaments and biological substances; Z91.041 Radiographic dye allergy status; Z98.890 Other specified postprocedural states
CPT/HCPCS: 99281